=== PATIENT | male | born 1960 | race Caucasian/White ===

== ENCOUNTER 2017-06-27 14:51 | Emergency (ER) | payer SELFPAY ==
[~2017-06-27] VITALS: Ht 177.8 cm; Wt 79.5 kg
[~2017-06-27 14:51] MED LIST: ASPIRIN 81M81 MG/TA2 PO; FISH OIL1000 MG PO; MULTIPLE VITAMI1 CAP PO; ZOCOR 10MG10 MG PO
[2017-06-27 14:57] VITALS: BP 175/88; TEMP 98.5
[2017-06-27] MEDS ORDERED: COZAAR 50MG50 MG/TAB PO (15:00)
[2017-06-27] MEDS ORDERED: ZOCOR 20MG20 MG PO (15:00)
[2017-06-27 16:47] VITALS: PULSE 66
== END 2017-06-27 16:47 | disposition home or self-care (01) ==
LOC: COL.ER 14:51
DX: S90.121A Contusion of right lesser toe(s) without damage to nail, initial encounter (principal); I10 Essential (primary) hypertension; W20.8XXA Other cause of strike by thrown, projected or falling object, initial encounter

== ENCOUNTER 2017-07-05 13:33 | Outpatient (RCR) | payer OTHER ==
[~2017-07-05 13:33] MED LIST changes: +COZAAR 50MG50 MG/TAB PO; +ZOCOR 20MG20 MG PO
== END 2017-07-18 08:08 ==
LOC: WSOH 13:33
DX: S90.121A Contusion of right lesser toe(s) without damage to nail, initial encounter (principal); W20.8XXA Other cause of strike by thrown, projected or falling object, initial encounter; Y99.0 Civilian activity done for income or pay

== ENCOUNTER 2019-02-20 07:59 | Outpatient (RCR) | payer OTHER | END 2019-03-19 15:38 | disposition home or self-care (01) | LOC: WSOH 07:59 | DX: M25.562 Pain in left knee (principal); M25.462 Effusion, left knee; M25.461 Effusion, right knee; W01.198A Fall on same level from slipping, tripping and stumbling with subsequent striking against other object, initial encounter; Y92.89 Other specified places as the place of occurrence of the external cause; Y93.89 Activity, other specified; Y99.0 Civilian activity done for income or pay ==